=== PATIENT | male | born 1955 | race Caucasian/White ===

== ENCOUNTER 2017-03-13 02:54 | Inpatient (IN) | payer MEDICARE ==
[2017-03-13] MEDS ORDERED: Ondansetron INJ* 2 MG/ML VIAL IV ONE (03:30)
[2017-03-13] MEDS ORDERED: NS 0.9% 1000 ML* 1,000 ML IV ONE ×2 (03:30→06:28)
[2017-03-13] MEDS ORDERED: Morphine INJ* 4 MG/ML 1 ML CARPUJECT IV ONE (03:30)
[2017-03-13 04:46] LABS: Hematocrit 44 % (42-52); Hemoglobin 15.2 g/dl (14.0-18.0); Mean Corpuscular HGB Conc 35 g/dl (31-36); Mean Corpuscular Hemoglobin 31 pg (27-31); Mean Corpuscular Volume 90 fL (80-94); Mean Platelet Volume 7 um3 (7.4-10.4); Red Blood Count 4.85 10^6/ul (4.0-5.4); Red Cell Distribution Width 13 % (10.5-15); White Blood Count 13.1 10^3/ul (3.5-10.8)
[2017-03-13 04:58] LABS: Albumin 4.2 g/dL (3.2-5.2); BUN/Creatinine Ratio 16.4 (8-20); C Reactive Protein 122.14 mg/L (< 5.00); Calcium 9.4 mg/dL (8.6-10.3); EGFR African American 140.9 (>60); EGFR Non-African American 109.6 (>60); Globulin 3.1 g/dL (2-4); Magnesium 1.8 mg/dL (1.9-2.7); Total Bilirubin 0.7 mg/dL (0.2-1.0); Total Protein 7.3 g/dL (6.4-8.9)
[2017-03-13 04:59] LABS: Troponin I 0.02 ng/mL (<0.04)
[2017-03-13] MEDS ORDERED: Iodixanol* (CONTRAST) 320 MG/ML 100 ML SDV IV ONE (05:21)
[2017-03-13] MEDS ORDERED: fentaNYL* 50 MCG/ML 2 ML VIAL (100 MCG VIAL) IV SLOW PU ONE (05:22)
[2017-03-13] MEDS ORDERED: LORazepam INJ* 2 MG/ML 1 ML VIAL ONE (06:33)
[2017-03-13] MEDS ORDERED: LORazepam INJ* 2 MG/ML 1 ML VIAL IV PUSH ONE (06:45)
[2017-03-13] MEDS ORDERED: Albuterol 2.5 MG/3 ML NEB.SOL* (0.083%) INH ONE (06:45)
[2017-03-13 06:55] LABS: FIO2 5
[2017-03-13 07:00] LABS: PCO2 Arterial 46 mmHg (35-45)
--- NOTE | 2017-03-13 07:55 | RAD ---
HISTORY: Seizure COMPARISONS: None TECHNIQUE: Multiple contiguous axial CT scans were obtained of the head without intravenous contrast. Intravenous contrast administered shortly before as part of a CT of the abdomen and pelvis. FINDINGS: The presence of intravenous contrast precludes evaluation for small amounts of subarachnoid hemorrhage. HEMORRHAGE/INFARCT: There is no hemorrhage or acute infarct. MASSES/SHIFT: There is no mass or shift. EXTRA-AXIAL SPACES: There are no extra-axial fluid collections. SULCI AND VENTRICLES: The sulci and ventricles are normal in size and position for the patient's stated age. CEREBRUM: There are no focal parenchymal abnormalities. BRAINSTEM: There are no focal parenchymal abnormalities. CEREBELLUM: There are no focal parenchymal abnormalities. VESSELS: The vessels are grossly normal. PARANASAL SINUSES: The paranasal sinuses are clear. ORBITS: The orbits are unremarkable. BONES AND SOFT TISSUE: No bone or soft tissue abnormalities are noted. OTHER: There is no abnormal enhancement IMPRESSION: NO ACUTE INTRACRANIAL PATHOLOGY.
--- NOTE | 2017-03-13 08:09 | ED ---
Jose Springer Thomas, scribed for Genaro Jennings MD on 03/13/17 at 0758 . Progress - Progress Note Progress Note: The patient is a sign out from Dr. Rivas at shift change pending CT Abd/Pel and CT Brain. CT Abd/Pel shows inflamed appearing gallbladder. Correlation with history, biliary studies, and infectious disease parameters is recommended. ED physician has reviewed this report and agrees. CT Brain shows _ I consulted with Dr. Cowart, surgery, at 07:[address] Cowart has asked me to have medicine see the patient and get preoperative clearance. He is aware of the patient, labs, studies, and that the patient had a seizure immediately after the CT scan. The patient is presently awake, alert, oriented, and has pain mostly in upper half of abdomen. No CP, No SOB, no headache. He will have a chest xray done as well. Since having the seizure is oxygen sat has been a little low, but maintained on oxygen. His lungs are a little rhonci on exam, and it is possible he could have aspirated. The patient has had abdominal pain for two days; he and his drove here yesterday from [facility] for a visit. Case discussed with Dr Sheehan the hospitalists who is doing preoperative consult for general surgery. Course/Dx - Diagnoses Provider Diagnoses: Cholecystitis, Syncope, Seizure The documentation as recorded by the Jose velazquez Thomas accurately reflects the service I personally performed and the decisions made by me, Genaro Jennings MD.
--- NOTE | 2017-03-13 08:17 | RAD ---
HISTORY: Abdominal pain COMPARISONS: CT dated March 13, 2017 VIEWS: Frontal views of the abdomen. FINDINGS: BOWEL: There is a nonobstructive bowel gas pattern. There is a moderate amount of stool within the colon. CALCULI: There are no abnormal calculi. BONES AND SOFT TISSUES: There are no osseous abnormalities. OTHER FINDINGS: The lung bases are clear. There is no subphrenic gas. IMPRESSION: NONOBSTRUCTIVE BOWEL GAS PATTERN.
--- NOTE | 2017-03-13 08:20 | RAD ---
CLINICAL HISTORY: Abdominal pain COMPARISON: None TECHNIQUE: Multiple contiguous axial CT scans were obtained of the abdomen and pelvis after the administration of intravenous contrast. Coronal and sagittal multiplanar reformations are submitted for review. Oral contrast was administered. Delayed images were obtained through the abdomen and pelvis. FINDINGS: LUNG BASES: The lung bases are clear. LIVER: The liver is diffusely low in attenuation compared to the spleen. There are no focal hepatic parenchymal masses. The liver measures up to 20 cm in long axis. BILE DUCTS: There is no intrahepatic or extrahepatic biliary dilatation. GALLBLADDER: Multiple gallstones are noted. There is stranding of the pericholecystic fat. There is mild gallbladder wall thickening. PANCREAS: The pancreas is normal, without mass or ductal dilatation. SPLEEN: Normal in size and appearance. UPPER GI TRACT: Evaluation of the gastrointestinal tract is limited by incomplete gastric distention. The upper GI tract is unremarkable. SMALL BOWEL AND MESENTERY: The small bowel is normal in contour, course, and caliber. There is no obstruction or dilatation. COLON: The colon is normal in contour, course, caliber. There is no pericolonic inflammatory change. ADRENALS: Normal bilaterally. KIDNEYS: The kidneys are normal in shape, size, contour, and axis. There is no hydronephrosis or nephrolithiasis. BLADDER: The bladder is smooth in contour. PELVIC ORGANS: The prostate gland is normal. The seminal vesicles are symmetric. AORTA: There is calcific atherosclerotic disease of the abdominal aorta and its branches, without aneurysmal dilatation IVC: Unremarkable LYMPH NODES: There is no lymphadenopathy by size criteria. ABDOMINAL WALL: There is no evidence for abdominal wall hernia. BONES AND SOFT TISSUES: Mild degenerative changes are noted OTHER: None IMPRESSION: FINDINGS SUGGESTIVE OF ACUTE CHOLECYSTITIS. HEPATOMEGALY WITH FATTY INFILTRATION OF THE LIVER.
--- NOTE | 2017-03-13 08:21 | RAD ---
HISTORY: Hypoxemia COMPARISONS: March 13, 2006 VIEWS: 1: frontal portable view of the chest at 8:03 AM FINDINGS: LINES AND TUBES: None. CARDIOMEDIASTINAL SILHOUETTE: The cardiomediastinal silhouette is normal for portable technique. PLEURA: The costophrenic angles are sharp. No pleural abnormalities are noted. LUNG PARENCHYMA: The lungs are clear. ABDOMEN: The upper abdomen is clear. There is no subphrenic gas. BONES AND SOFT TISSUES: No bone or soft tissue abnormalities are noted. IMPRESSION: NO ACTIVE CARDIOPULMONARY DISEASE.
[2017-03-13] MEDS ORDERED: Zosyn per Pharmacy* NOTE FOLLOW UP SCH (09:00)
[2017-03-13] MEDS ORDERED: NS 0.9% 1000 ML* 1,000 ML IV SCH (09:15)
[2017-03-13] MEDS ORDERED: Piperacillin/Tazobac (*) 3.375 GM ADDV.VIAL ONE (09:33)
[2017-03-13] MEDS ORDERED: traMADol TAB* 50 MG PO PRN (10:30)
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
[2017-03-13] MEDS: Metoprolol Tartrate TAB* 50 mg PO SCH ×2 (11:38→22:37)
--- NOTE | 2017-03-13 12:30 | RAD ---
INDICATION: Right upper quadrant pain. COMPARISON: Comparison is made with a prior CT of the abdomen and pelvis of the same date. TECHNIQUE: Multiple real-time images of the right upper quadrant were obtained. FINDINGS: There are small gallstones present. The gallbladder wall is not thickened although there is pericholecystic fluid present. No intra or extrahepatic ductal distention is present. The common bile duct measured 0.4 cm in diameter. The liver is diffusely increased in echogenicity which correlates with fatty infiltration on the CT study. No focal hepatic abnormality is seen. The pancreas is obscured by overlying bowel gas. The right kidney is normal in size without evidence for hydronephrosis. IMPRESSION: 1. CHOLELITHIASIS. IN ADDITION THERE IS A SMALL AMOUNT OF PERICHOLECYSTIC FLUID SUGGESTING THE POSSIBILITY OF ACUTE CHOLECYSTITIS WHICH WOULD CORRELATE WITH THE PRIOR CT FINDINGS. 2. HEPATIC STEATOSIS.
[2017-03-13 13:13] LABS: Urine Bilirubin Negative (Negative); Urine Glucose 1+(50 mg/dL) (Negative); Urine Nitrite Negative (Negative)
[2017-03-13] MEDS: Gabapentin CAP(*) 300 MG PO SCH ×2 (14:27→22:37)
[2017-03-13] MEDS: Morphine INJ* 2 MG/ML 1 ML SYRINGE (TWO MG - NEW SYRINGE VERSION) IV PRN ×2 (14:55→19:45)
[2017-03-13] MEDS: ZOSYN 3.375 GM Q8H per EXTENDED INFUSION IVPB SCH ×4 (14:55→23:34)
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
[2017-03-13] MEDS ORDERED: Dexamethasone TAB* 4 MG PO ONE (16:22)
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
--- NOTE | 2017-03-13 18:51 | RAD ---
HISTORY: Seizure COMPARISONS: CT of the brain from the same day that does not reveal any acute intracranial abnormality. TECHNIQUE: The following sequences were obtained of the head: Sagittal T1-weighted images, axial T2-weighted images, axial FLAIR images, axial susceptibility weighted images, axial T1-weighted images. Additionally, axial diffusion-weighted images were obtained with calculated apparent diffusion coefficients.. FINDINGS: HEMORRHAGE/INFARCT: There is no hemorrhage or acute infarct. MASSES/SHIFT: There is no mass or shift. EXTRA-AXIAL SPACES/MENINGES: There are no extra-axial fluid collections. SULCI AND VENTRICLES: The sulci and ventricles are normal in size and position for the patient's stated age. CEREBRUM: There are no focal parenchymal abnormalities. BRAINSTEM: There are no focal parenchymal abnormalities. CEREBELLUM: There are no focal parenchymal abnormalities. The cerebellar tonsils are normal in size and position. SELLA: The sella is normal. PINEAL: The pineal region is clear. CP ANGLE/TEMPORAL BONES: The labyrinthine structures are grossly normal. VESSELS: Normal flow-voids are noted within the visualized vertebral vasculature. DIFFUSION ABNORMALITIES: There are no diffusion abnormalities. PARANASAL SINUSES/MASTOIDS: The paranasal sinuses are clear. ORBITS: The orbits are unremarkable. BONES AND SOFT TISSUE: No bone or soft tissue abnormalities are noted. IMPRESSION: NORMAL MRI OF THE BRAIN.
[2017-03-13] MEDS ORDERED: levETIRAcetam TAB* 500 MG PO SCH (21:00)
--- NOTE | 2017-03-13 21:05 | PN ---
Progress Note - Progress Note Date of Service: 03/13/17 Note: Cross cover note: Discussed with Dr. Kaminski. Loaded with keppra 1000mg this evening and again in AM then 1500mg daily starting Monday.
--- NOTE | 2017-03-13 21:38 | CONS ---
CC: Flaco Cowart MD * CARDIOLOGY CONSULTATION NOTE: DATE OF CONSULT: 03/13/17 INDICATION FOR CONSULTATION: Coronary artery disease, acute cholecystitis. HISTORY OF PRESENT ILLNESS: The patient is a 61-year-old gentleman with a history of coronary artery disease, history of stenting to his LAD and left circumflex artery in 2010, who was admitted to the hospital with abdominal pain and diagnosed with acute cholecystitis. The patient states for the past 24 hours, he has had worsening right upper quadrant pain. He has had nausea and vomiting. He has been unable to keep any liquids down. He came to the emergency room. In the emergency room, an abdominal CT were consistent with acute cholecystitis. In speaking with the patient, he denies any recent changes in his cardiac status. The patient denies any chest pain, shortness of breath. No orthopnea or PND. No palpitations. No light-headedness, dizziness, or syncope. The patient was feeling well until the onset of his acute right upper quadrant pain. The patient does report that he continues to smoke up to 10 cigarettes a day. PAST MEDICAL HISTORY: Significant for coronary artery disease, hypercholesterolemia, diabetes. OUTPATIENT MEDICATIONS: 1. Losartan 100 mg a day. 2. Plavix 75 mg a day. 3. Metoprolol tartrate 50 mg b.i.d. 4. Aspirin 325 a day. 5. Coenzyme Q10 100 mg a day. 6. Vitamin C. 7. Gabapentin 300 mg 6 times a day. 8. Tramadol 50 mg 2 tablets 3 times a day. 9. Hydrochlorothiazide 12.5 mg a day. 10. Crestor 20 mg a day. 11. Metformin 1500 mg a day. ALLERGIES: No known drug allergies. SOCIAL HISTORY: He is , he is currently disabled. He continues to smoke 10 cigarettes a day. He denies alcohol use. PHYSICAL EXAM: Height is 6 feet, weight is 236 pounds. Temperature 98.1, heart rate is 105, respiratory rate is 24, oxygen saturation 94% on 2 L, blood pressure 154/93. Sclerae anicteric. Oropharynx is pink without erythema. Carotids are 2+ without bruits. JVD is normal. Thyroid is normal. Cardiac: S1 , S2 without any murmurs, rubs or gallops. PMI is normal. Lungs are clear to auscultation bilaterally. There is no dullness to percussion. Abdomen is obese , soft. He does have right upper quadrant tenderness. There is no evidence of ascites. Extremities show 1+ edema. He has 2+ pulses throughout. The patient is awake and alert and oriented. He moves all 4 extremities equally. DIAGNOSTIC STUDIES/LAB DATA: CBC: White count 13.1, hemoglobin and hematocrit is stable, platelet count 187,000. Chemistries within normal limits. Troponin 0.02. EKG demonstrates normal sinus rhythm with normal axis and intervals. He does have an EKG from earlier today which showed sinus tachycardia. IMPRESSION: This is a 61-year-old gentleman with a history of coronary artery disease as described above who is admitted to the hospital with acute cholecystitis. Again in speaking with the patient, I cannot elicit any recent changes in his symptoms. For now, the patient is on appropriate medications for his cardiac status. At this point, I do not think any medications are necessary. I do not think any cardiac testing is necessary. The patient is at moderately increased risk for cardiovascular complication given his history of coronary artery disease, diabetes and continued smoking. I will continue to follow the patient during his hospitalization. [id number]/[facility] #: [id number] ISAAC
--- NOTE | 2017-03-14 02:13 | EEG ---
ELECTROENCEPHALOGRAPHY: DATE OF STUDY: DATE OF DICTATION: 03/13/17 - ROOM #452 PATIENT OF: Canelo Sheehan MD and Oswaldo Kaminski MD HISTORY: This is a 61-year-old man who presented to the emergency room for abdominal pain and while in the emergency room, he had a generalized convulsion lasting a minute or two. He has never had seizures before. Ativan was given in the emergency room. He has also had pain medications in the emergency room including morphine. REPORT: With the patient awake, background cerebral activity consists of moderate amplitude posterior dominant 9 Hz rhythm, which attenuates with eye opening, reappears with eye closure. At times the patient becomes drowsy with slowing into the theta range, but the patient never falls fully asleep. No epileptiform potentials, focal abnormalities, or major asymmetries of background are noted. CLINICAL IMPRESSION: This awake and drowsy EEG is within normal limits. [id number]/[facility] #: [id number] MTDD
[2017-03-14 04:53] LABS: Hematocrit 42 % (42-52); Hemoglobin 14.2 g/dl (14.0-18.0); Mean Corpuscular HGB Conc 34 g/dl (31-36); Mean Corpuscular Hemoglobin 31 pg (27-31); Mean Corpuscular Volume 91 fL (80-94); Mean Platelet Volume 8 um3 (7.4-10.4); Red Cell Distribution Width 13 % (10.5-15); White Blood Count 18.7 10^3/ul (3.5-10.8)
[2017-03-14] MEDS: ZOSYN 3.375 GM Q8H per EXTENDED INFUSION IVPB SCH ×4 (06:13→15:50)
[2017-03-14] MEDS: Morphine INJ* 2 MG/ML 1 ML SYRINGE (TWO MG - NEW SYRINGE VERSION) IV PRN (06:19)
[2017-03-14] MEDS ORDERED: Famotidine IV* 10 MG/ML 2 ML (20 mg) IV SLOW PU ONE (07:00)
[2017-03-14] MEDS ORDERED: Dexamethasone TAB* 4 MG PO ONE (07:00)
[2017-03-14] MEDS: Metoprolol Tartrate TAB* 50 mg PO SCH (08:40)
[2017-03-14] MEDS: Gabapentin CAP(*) 300 MG PO SCH ×2 (09:08→15:49)
[2017-03-14] MEDS ORDERED: KETAMINE HCL* 50 MG/ML 10 ML VIAL ONE (10:10)
[2017-03-14] MEDS ORDERED: Midazolam* 1 MG/ML 5 ML VIAL (5 MG) ONE (10:10)
[2017-03-14] MEDS ORDERED: Atracurium* 10 MG/ML 10 ML VIAL ONE (10:10)
[2017-03-14] MEDS ORDERED: fentaNYL* 50 MCG/ML 2 ML VIAL (100 MCG VIAL) ONE ×2 (10:10→11:54)
[2017-03-14] MEDS ORDERED: Levalbuterol 1.25MG/0.5ML NEB ONE ×2 (10:36→13:12)
[2017-03-14] MEDS ORDERED: Bupivacaine 0.25% SDV* 30 ML ONE (11:14)
[2017-03-14] MEDS ORDERED: Glycopyrrolate IV* 0.2 MG/ML 1 ML VIAL ONE (12:05)
[2017-03-14] MEDS ORDERED: Metoprolol Tartrate IV* 1 MG/ML 5 ML VIAL ONE (12:05)
[2017-03-14] MEDS ORDERED: Lidocaine 2% PF * 5 ML VIAL ONE ×2 (12:05→12:51)
[2017-03-14] MEDS ORDERED: Ondansetron INJ* 2 MG/ML VIAL ONE (12:05)
[2017-03-14] MEDS ORDERED: Propofol* 10 MG/ML 20 ML BTL IV PUSH ONE (12:05)
[2017-03-14] MEDS ORDERED: Ketorolac INJ* 30 MG/ML 1 ML VIAL ONE (12:05)
[2017-03-14] MEDS ORDERED: Labetalol IV* 5 MG/ML 20 ML VIAL ONE (12:06)
[2017-03-14] MEDS ORDERED: hydrALAZINE IV* 20 MG/ML VIAL ONE (12:10)
[2017-03-14] MEDS ORDERED: Neostigmine Methylsulfate* 2 MG/2 ML SYRINGE ONE (12:28)
--- NOTE | 2017-03-14 12:57 | ED ---
Charisse Springer Alfonso, scribed for Genaro Rivas MD on 03/13/17 at 0332 . Abdominal Pain/Male <Genaro Jennings - Last Filed: 03/13/17 08:08> - HPI Summary HPI Summary: This patient is a 61 year old M presenting to [facility] accompanied by with a chief complaint of diffuse abdominal since 2 days ago. His abdomen is described as gassy and swollen. The patient rates the pain 9/10 in severity. Symptoms alleviated by nothing. Patient denies N/V/D, and constipation. He denies abdominal PSHx. Tobacco abuse disorder. PMHx includes DM, CAD, and HTN. - History of Current Complaint Hx Obtained From: Patient Onset/Duration: Sudden Onset, Lasting Days - 2, Still Present Timing: Constant Severity Currently: Severe Pain Intensity: 9 Pain Scale Used: 0-10 Numeric Location: Diffuse Character: Other: - gassy and swollen. Alleviating Factor(s): Nothing Associated Signs And Symptoms: Positive: Other - denies N/V/D, and constipation <Genaro Rivas - Last Filed: 03/14/17 12:56> - History of Current Complaint Chief Complaint: EDAbdPain Stated Complaint: ABD PAIN/BLOTTING/GASSY Time Seen by Provider: 03/13/17 03:18 - Allergies/Home Medications Allergies/Adverse Reactions: Allergies Allergy/AdvReac Type Severity Reaction Status Date / Time Iodinated Diagnostic Agents Allergy See Comment Verified 03/13/17 16:40 Home Medications: Home Medications Clopidogrel Bisulfate [Clopidogrel] 75 mg PO DAILY 03/13/17 [History Confirmed 03/13/17] Gabapentin CAP(*) [Neurontin 300 CAP(*)] 600 mg PO TID 03/13/17 [History Confirmed 03/13/17] Hydrochlorothiazide [Microzide-] 12.5 mg PO DAILY 03/13/17 [History Confirmed ] Losartan Potassium [Losartan Potassium] 100 mg PO DAILY 03/13/17 [History Confirmed 03/13/17] Metformin HCl [Metformin HCl ER] 500 mg PO DAILY 03/13/17 [History Confirmed 07/29] Metoprolol Tartrate TAB* [Lopressor TAB*] 50 mg PO BID 03/13/17 [History Confirmed 03/13/17] traMADol TAB* [Ultram*] 50 mg PO Q4HR PRN 03/13/17 [History Confirmed 03/13/17] PMH/Surg Hx/FS Hx/Imm Hx Endocrine/Hematology History: Reports: Hx Diabetes Cardiovascular History: Reports: Hx Coronary Artery Disease, Hx Hypertension Opthamlomology History: Denies: Hx Legally Blind EENT History: Denies: Hx Deafness Infectious Disease History: No Infectious Disease History: Denies: Traveled Outside the [place] in Last 30 Days - Family History Known Family History: Positive: Cardiac Disease - Social History Alcohol Use: None Substance Use Type: Reports: None Smoking Status (MU): Light Every Day Tobacco Smoker <Genaro Rivas - Last Filed: 03/14/17 12:56> Review of Systems Negative: Fever Positive: Abdominal Pain, Other - Negative constipation. Negative: Vomiting, Diarrhea, Nausea All Other Systems Reviewed And Are Negative: Yes <Genaro Rivas - Last Filed: 03/14/17 12:56> Physical Exam Vital Signs On Initial Exam: Initial Vitals Temp Pulse Resp BP Pulse Ox 98.0 F 93 18 158/93 96 03/13/17 02:59 03/13/17 02:59 03/13/17 02:59 03/13/17 02:59 03/13/17 02:59 <Genaro Jennings - Last Filed: 03/13/17 08:08> - Summary Physical Exam Summary: VITAL SIGNS: Reviewed. GENERAL: Patient is a well-developed and nourished male who is lying uncomfortably in the stretcher. Patient is not in any acute respiratory distress. HEAD AND FACE: Normocephalic and atraumatic. EYES: PERRLA, EOMI x 2, No injected conjunctiva. EARS: Hearing grossly intact. Ear canals and tympanic membranes are WNL. MOUTH: Oropharynx within normal limits. NECK: Supple, trachea is midline, no adenopathy, no JVD. CHEST: Symmetric, no tenderness at palpation LUNGS: Clear to auscultation bilaterally. No wheezing or crackles. CVS: RRR, S1 and S2 present, no murmurs or gallops appreciated. ABDOMEN: Diffuse abdominal tenderness with guarding and rebound. Soft. No signs of distention. Positive bowel sounds. No masses palpated. No abdominal bruit or pulsations. EXTREMITIES: FROM in all major joints, no edema, no cyanosis or clubbing. NEURO: Alert and oriented x 3. No acute neurological deficits. Speech is normal. SKIN: Dry and warm Triage Information Reviewed: Yes Vital Signs On Initial Exam: Initial Vitals Temp Pulse Resp BP Pulse Ox 98.0 F 93 18 158/93 96 03/13/17 02:59 03/13/17 02:59 03/13/17 02:59 03/13/17 02:59 03/13/17 02:59 Vital Signs Reviewed: Yes - Julio Coma Scale Best Eye Response: 4 - Spontaneous Best Motor Response: 6 - Obeys Commands Best Verbal Response: 5 - Oriented <Genaro Rivas - Last Filed: 03/14/17 12:56> Diagnostics - Vital Signs Vital Signs Temp Pulse Resp BP Pulse Ox 03/13/17 07:37 109 150/95 92 03/13/17 07:32 105 163/95 94 03/13/17 07:15 109 148/97 92 03/13/17 07:05 111 133/80 92 03/13/17 07:00 109 132/81 97 03/13/17 06:55 110 128/80 92 03/13/17 06:50 110 116/72 92 03/13/17 06:48 111 98/65 92 03/13/17 06:47 111 101/68 93 03/13/17 06:46 16 03/13/17 06:42 83 90/58 94 03/13/17 06:33 81/65 03/13/17 06:16 86 97 03/13/17 06:00 73 179/96 95 03/13/17 05:28 16 03/13/17 05:00 73 170/86 96 03/13/17 04:44 175/84 03/13/17 04:42 79 93 03/13/17 04:36 78 159/90 92 03/13/17 04:30 16 03/13/17 04:12 79 96 03/13/17 04:10 84 16 150/90 93 03/13/17 03:40 76 94 03/13/17 03:38 170/92 03/13/17 02:59 98.0 F 93 18 158/93 96 - Laboratory Lab Results: Lab Results 03/13/17 03/13/17 03/13/17 Range/Units 04:20 04:20 04:20 WBC 13.1 H (3.5-10.8) 10^3/ul RBC 4.85 (4.0-5.4) 10^6/ul Hgb 15.2 (14.0-18.0) g/dl Hct 44 (42-52) % MCV 90 (80-94) fL MCH 31 (27-31) pg MCHC 35 (31-36) g/dl RDW 13 (10.5-15) % Plt Count 187 (150-450) 10^3/ul MPV 7 L (7.4-10.4) um3 Neut % (Auto) 82.3 (38-83) % Lymph % (Auto) 10.6 L (25-47) % Flathead % (Auto) 6.5 (1-9) % Eos % (Auto) 0.4 (0-6) % Baso % (Auto) 0.2 (0-2) % Absolute Neuts (auto) 10.8 H (1.5-7.7) 10^3/ul Absolute Lymphs (auto) 1.4 (1.0-4.8) 10^3/ul Absolute Monos (auto) 0.8 (0-0.8) 10^3/ul Absolute Eos (auto) 0 (0-0.6) 10^3/ul Absolute Basos (auto) 0 (0-0.2) 10^3/ul Absolute Nucleated RBC 0.01 10^3/ul Nucleated RBC % 0.1 Patient Temperature ABG pH (7.35-7.45) ABG pH (Temp Correct) ABG pCO2 (35-45) mmHg ABG pCO2 (Temp Corrct ABG pO2 (80-100) mmHg ABG pO2 (Temp Correct ABG HCO3 (19-31) mmol/L ABG O2 Saturation (95-98) % ABG Base Excess (-2.0-2.0) Respiration Rate O2 Delivery Device Ventilator Type Vent Mode FiO2 Inspiratory Time PEEP Pressure Support Pressure Control EPAP IPAP BiPAP Sodium 135 (133-145) mmol/L Potassium 4.0 (3.5-5.0) mmol/L Chloride 97 L (101-111) mmol/L Carbon Dioxide 32 (22-32) mmol/L Anion Gap 6 (2-11) mmol/L BUN 12 (6-24) mg/dL Creatinine 0.73 (0.67-1.17) mg/dL Est GFR ( Amer) 140.9 (>60) Est GFR (Non-Af Amer) 109.6 (>60) BUN/Creatinine Ratio 16.4 (8-20) Glucose 190 H (70-100) mg/dL Lactic Acid (0.5-2.0) mmol/L Calcium 9.4 (8.6-10.3) mg/dL Magnesium 1.8 L (1.9-2.7) mg/dL Total Bilirubin 0.70 (0.2-1.0) mg/dL AST 15 (13-39) U/L ALT 20 (7-52) U/L Alkaline Phosphatase 46 (34-104) U/L Troponin I 0.02 (<0.04) ng/mL C-Reactive Protein 122.14 H (< 5.00) mg/L B-Natriuretic Peptide 63 ( - 100) pg/mL Total Protein 7.3 (6.4-8.9) g/dL Albumin 4.2 (3.2-5.2) g/dL Globulin 3.1 (2-4) g/dL Albumin/Globulin Ratio 1.4 (1-3) Lipase 13 (11.0-82.0) U/L 03/13/17 03/13/17 Range/Units 04:20 06:45 WBC (3.5-10.8) 10^3/ul RBC (4.0-5.4) 10^6/ul Hgb (14.0-18.0) g/dl Hct (42-52) % MCV (80-94) fL MCH (27-31) pg MCHC (31-36) g/dl RDW (10.5-15) % Plt Count (150-450) 10^3/ul MPV (7.4-10.4) um3 Neut % (Auto) (38-83) % Lymph % (Auto) (25-47) % Flat[place] % (Auto) (1-9) % Eos % (Auto) (0-6) % Baso % (Auto) (0-2) % Absolute Neuts (auto) (1.5-7.7) 10^3/ul Absolute Lymphs (auto) (1.0-4.8) 10^3/ul Absolute Monos (auto) (0-0.8) 10^3/ul Absolute Eos (auto) (0-0.6) 10^3/ul Absolute Basos (auto) (0-0.2) 10^3/ul Absolute Nucleated RBC 10^3/ul Nucleated RBC % Patient Temperature Not Reportable ABG pH 7.35 (7.35-7.45) ABG pH (Temp Correct) Not Reportable ABG pCO2 46 H (35-45) mmHg ABG pCO2 (Temp Corrct Not Reportable ABG pO2 63 L (80-100) mmHg ABG pO2 (Temp Correct Not Reportable ABG HCO3 24.1 (19-31) mmol/L ABG O2 Saturation 95.0 (95-98) % ABG Base Excess -0.7 (-2.0-2.0) Respiration Rate Not Reportable O2 Delivery Device nc Ventilator Type Not Reportable Vent Mode Not Reportable FiO2 5 Inspiratory Time Not Reportable PEEP Not Reportable Pressure Support Not Reportable Pressure Control Not Reportable EPAP Not Reportable IPAP Not Reportable BiPAP Not Reportable Sodium (133-145) mmol/L Potassium (3.5-5.0) mmol/L Chloride (101-111) mmol/L Carbon Dioxide (22-32) mmol/L Anion Gap (2-11) mmol/L BUN (6-24) mg/dL Creatinine (0.67-1.17) mg/dL Est GFR ( Amer) (>60) Est GFR (Non-Af Amer) (>60) BUN/Creatinine Ratio (8-20) Glucose (70-100) mg/dL Lactic Acid 2.0 (0.5-2.0) mmol/L Calcium (8.6-10.3) mg/dL Magnesium (1.9-2.7) mg/dL Total Bilirubin (0.2-1.0) mg/dL AST (13-39) U/L ALT (7-52) U/L Alkaline Phosphatase (34-104) U/L Troponin I (<0.04) ng/mL C-Reactive Protein (< 5.00) mg/L B-Natriuretic Peptide ( - 100) pg/mL Total Protein (6.4-8.9) g/dL Albumin (3.2-5.2) g/dL Globulin (2-4) g/dL Albumin/Globulin Ratio (1-3) Lipase (11.0-82.0) U/L Result Diagrams: 03/13/17 04:20 03/13/17 04:20 Lab Statement: Any lab studies that have been ordered have been reviewed, and results considered in the medical decision making process. <Genaro Jennings - Last Filed: 03/13/17 08:08> - Vital Signs Vital Signs Temp Pulse Resp BP Pulse Ox 03/13/17 02:59 98.0 F 93 18 158/93 96 - Laboratory Lab Results: Lab Results 03/13/17 03/13/17 03/13/17 Range/Units 04:20 04:20 04:20 WBC 13.1 H (3.5-10.8) 10^3/ul RBC 4.85 (4.0-5.4) 10^6/ul Hgb 15.2 (14.0-18.0) g/dl Hct 44 (42-52) % MCV 90 (80-94) fL MCH 31 (27-31) pg MCHC 35 (31-36) g/dl RDW 13 (10.5-15) % Plt Count 187 (150-450) 10^3/ul MPV 7 L (7.4-10.4) um3 Neut % (Auto) 82.3 (38-83) % Lymph % (Auto) 10.6 L (25-47) % Flathead % (Auto) 6.5 (1-9) % Eos % (Auto) 0.4 (0-6) % Baso % (Auto) 0.2 (0-2) % Absolute Neuts (auto) 10.8 H (1.5-7.7) 10^3/ul Absolute Lymphs (auto) 1.4 (1.0-4.8) 10^3/ul Absolute Monos (auto) 0.8 (0-0.8) 10^3/ul Absolute Eos (auto) 0 (0-0.6) 10^3/ul Absolute Basos (auto) 0 (0-0.2) 10^3/ul Absolute Nucleated RBC 0.01 10^3/ul Nucleated RBC % 0.1 Patient Temperature ABG pH (7.35-7.45) ABG pH (Temp Correct) ABG pCO2 (35-45) mmHg ABG pCO2 (Temp Corrct ABG pO2 (80-100) mmHg ABG pO2 (Temp Correct ABG HCO3 (19-31) mmol/L ABG O2 Saturation (95-98) % ABG Base Excess (-2.0-2.0) Respiration Rate O2 Delivery Device Ventilator Type Vent Mode FiO2 Inspiratory Time PEEP Pressure Support Pressure Control EPAP IPAP BiPAP Sodium 135 (133-145) mmol/L Potassium 4.0 (3.5-5.0) mmol/L Chloride 97 L (101-111) mmol/L Carbon Dioxide 32 (22-32) mmol/L Anion Gap 6 (2-11) mmol/L BUN 12 (6-24) mg/dL Creatinine 0.73 (0.67-1.17) mg/dL Est GFR ( Amer) 140.9 (>60) Est GFR (Non-Af Amer) 109.6 (>60) BUN/Creatinine Ratio 16.4 (8-20) Glucose 190 H (70-100) mg/dL Lactic Acid (0.5-2.0) mmol/L Calcium 9.4 (8.6-10.3) mg/dL Magnesium 1.8 L (1.9-2.7) mg/dL Total Bilirubin 0.70 (0.2-1.0) mg/dL AST 15 (13-39) U/L ALT 20 (7-52) U/L Alkaline Phosphatase 46 (34-104) U/L Troponin I 0.02 (<0.04) ng/mL C-Reactive Protein 122.14 H (< 5.00) mg/L B-Natriuretic Peptide 63 ( - 100) pg/mL Total Protein 7.3 (6.4-8.9) g/dL Albumin 4.2 (3.2-5.2) g/dL Globulin 3.1 (2-4) g/dL Albumin/Globulin Ratio 1.4 (1-3) Lipase 13 (11.0-82.0) U/L 03/13/17 03/13/17 Range/Units 04:20 06:45 WBC (3.5-10.8) 10^3/ul RBC (4.0-5.4) 10^6/ul Hgb (14.0-18.0) g/dl Hct (42-52) % MCV (80-94) fL MCH (27-31) pg MCHC (31-36) g/dl RDW (10.5-15) % Plt Count (150-450) 10^3/ul MPV (7.4-10.4) um3 Neut % (Auto) (38-83) % Lymph % (Auto) (25-47) % [place] % (Auto) (1-9) % Eos % (Auto) (0-6) % Baso % (Auto) (0-2) % Absolute Neuts (auto) (1.5-7.7) 10^3/ul Absolute Lymphs (auto) (1.0-4.8) 10^3/ul Absolute Monos (auto) (0-0.8) 10^3/ul Absolute Eos (auto) (0-0.6) 10^3/ul Absolute Basos (auto) (0-0.2) 10^3/ul Absolute Nucleated RBC 10^3/ul Nucleated RBC % Patient Temperature Not Reportable ABG pH 7.35 (7.35-7.45) ABG pH (Temp Correct) Not Reportable ABG pCO2 46 H (35-45) mmHg ABG pCO2 (Temp Corrct Not Reportable ABG pO2 63 L (80-100) mmHg ABG pO2 (Temp Correct Not Reportable ABG HCO3 24.1 (19-31) mmol/L ABG O2 Saturation 95.0 (95-98) % ABG Base Excess -0.7 (-2.0-2.0) Respiration Rate Not Reportable O2 Delivery Device nc Ventilator Type Not Reportable Vent Mode Not Reportable FiO2 5 Inspiratory Time Not Reportable PEEP Not Reportable Pressure Support Not Reportable Pressure Control Not Reportable EPAP Not Reportable IPAP Not Reportable BiPAP Not Reportable Sodium (133-145) mmol/L Potassium (3.5-5.0) mmol/L Chloride (101-111) mmol/L Carbon Dioxide (22-32) mmol/L Anion Gap (2-11) mmol/L BUN (6-24) mg/dL Creatinine (0.67-1.17) mg/dL Est GFR ( Amer) (>60) Est GFR (Non-Af Amer) (>60) BUN/Creatinine Ratio (8-20) Glucose (70-100) mg/dL Lactic Acid 2.0 (0.5-2.0) mmol/L Calcium (8.6-10.3) mg/dL Magnesium (1.9-2.7) mg/dL Total Bilirubin (0.2-1.0) mg/dL AST (13-39) U/L ALT (7-52) U/L Alkaline Phosphatase (34-104) U/L Troponin I (<0.04) ng/mL C-Reactive Protein (< 5.00) mg/L B-Natriuretic Peptide ( - 100) pg/mL Total Protein (6.4-8.9) g/dL Albumin (3.2-5.2) g/dL Globulin (2-4) g/dL Albumin/Globulin Ratio (1-3) Lipase (11.0-82.0) U/L Result Diagrams: 03/14/17 04:16 03/13/17 04:20 Lab Statement: Any lab studies that have been ordered have been reviewed, and results considered in the medical decision making process. - Radiology Abdomen X-Ray Radiology Interpretation Completed By: Radiologist - Pending official interpretation from radiologist. See [facility]. - CT A/P CT Interpretation Completed By: Radiologist - Pending official interpretation from radiologist. See [facility]. Brain CT Interpretation Completed By: Radiologist - Pending official interpretation from radiologist. See [facility]. - EKG 0407 Cardiac Rate: NL - BPM 77 EKG Rhythm: Sinus Rhythm EKG Interpretation: No ST elevation. Normal axis. 0633 Cardiac Rate: Tachycardia - BPM 112 EKG Rhythm: Sinus Tachycardia EKG Interpretation: Post seizure. EKG Comparison: No Significant Change - 0407 <Genaro Rivas - Last Filed: 03/14/17 12:56> Re-Evaluation - Re-Evaluation First Eval Re-Evaluation Time: 06:35 Comment: At approximately 0635 when the patient came back from CT, I was called into the room by the RN who stated that the patient became unresponsive. As soon as I arrived to the patient he had seizure activity with foaming at the mouth, body stiffness, and making loud noises. The patient was given pressured fluids and 2 mg of Ativan. He is resting comfortably with stable vital signs. <Genaro Rivas - Last Filed: 03/14/17 12:56> Abdominal Pain Fem Course/Dx <Genaro Jennings - Last Filed: 03/13/17 08:08> - Course Assessment/Plan: This patient is a 61 year old M presenting to [facility] accompanied by with a chief complaint of diffuse abdominal since 2 days ago. His abdomen is described as gassy and swollen. The patient rates the pain 9/10 in severity. Symptoms alleviated by nothing. Patient denies N/V/D, and constipation. He denies abdominal PSHx. Tobacco abuse disorder. PMHx includes DM, CAD, and HTN. An EKG reveals NSR. Test results with no significant abnormalities except for WBC of 13.1, glucose of 190, and CRP of 122.1. Abdominal xray was read as normal bowel gas pattern. Therfore I ordered an abominal and pelvic CT to r/o Pancreatitis, Cholecystitis, diverticulitis or any intrabominal pathology. In the ED course the patient was given IV fluids, morphine, and fentanyl for the pain. At this time the patient is awaiting the CT A/P. Therefore, the patient will be signed out at shift change to Dr. Jennings for further work up and management. At this time the patient is hemodynamically stable and alert and oriented x3. At approximately 0635 when the patient came back from CT, I was called into the room by the RN who stated that the patient became unresponsive. As soon as I arrived to the patient he had seizure activity with stiffness, foaming at the mouth, body stiffness, and making loud noises. The patient was given pressured fluids and 2 mg of Ativan. He is resting comfortably with stable vital signs. I ordered a CT head and ABG to rule out any acute intracranial pathology since the patient does not have a history of seizures. At this time patient is stable and alert and oriented x 3. He is hemodynamically stable. He will be signed to Dr. Jennings at change of shift. - Diagnoses Differential Diagnosis/HQI/PQRI: Bowel Obstruction, Constipation, Diverticulitis , Gall Bladder Disease, Pancreatitis, Peptic Ulcer Disease, Urinary Tract Infection <Genaro Rivas - Last Filed: 03/14/17 12:56> - Diagnoses Provider Diagnoses: Cholecystitis, Syncope, Seizure Discharge <Genaro Jennings - Last Filed: 03/13/17 08:08> - Discharge Plan Discharge Disposition Comment: Patient is signed out to Dr. Jennings, pending disposition, awaiting CT A/P <Genaro Rivas - Last Filed: 03/14/17 12:56> - Discharge Plan Condition: Fair Disposition: ADMITTED TO [facility] documentation as recorded by the Charisse velazquez Alfonso accurately reflects the service I personally performed and the decisions made by Rob taylor Walter, MD.
[2017-03-14] MEDS ORDERED: PROCHLORPERAZINE INJ 5 MG/ML 2 ML VIAL IV PRN (13:08)
[2017-03-14] MEDS ORDERED: oxyCODONE/Acetamin 5/325 MG* TAB PO PRN ×3 (13:08→13:33)
[2017-03-14] MEDS ORDERED: Morphine INJ* 2 MG/ML 1 ML CARPUJECT IV PRN (13:08)
[2017-03-14] MEDS ORDERED: fentaNYL* 50 MCG/ML 2 ML VIAL (100 MCG VIAL) IV PRN (13:08)
--- NOTE | 2017-03-14 13:25 | PN ---
Progress Note - Progress Note Date of Service: 03/14/17 Note: Brief Operative Note: Preop Dx: acute cholecystitis Postop Dx: same, gangrenous Procedure: laparoscopic cholecystectomy Anesthesia: GET Surgeon: Ella Asst: KAYLAN Perez EBL: < 100 ml Fluids: 900 ml RL Specimen: GB Drains: none Findings: Dictated
[2017-03-14] MEDS ORDERED: Morphine INJ* 4 MG/ML 1 ML CARPUJECT IV PRN (13:27)
[2017-03-14] MEDS ORDERED: Acetaminophen TAB* 325 MG PO PRN (13:27)
[2017-03-14] MEDS ORDERED: Morphine INJ* 2 MG/ML 1 ML SYRINGE (TWO MG - NEW SYRINGE VERSION) IV PRN (13:37)
[2017-03-14] MEDS ORDERED: NS 0.9% 1000 ML* 1,000 ML IV SCH (13:45)
[2017-03-14 15:55] VITALS: BP 116/66
--- NOTE | 2017-03-15 02:27 | OP ---
CC: Dr. Maurizio Grover; Dr. Sheila Khan * DATE OF OPERATION: 03/14/17 - ROOM #452 DATE OF : 57 SURGEON: Saurabh Jaramillo MD MANAGER TRANSIT: KAYLAN Guevara ANESTHESIOLOGIST: Dr. Knapp. ANESTHESIA: General anesthesia. PRE-OP DIAGNOSIS: Acute cholecystitis. POST-OP DIAGNOSIS: Acute gangrenous cholecystitis. OPERATIVE PROCEDURE: Laparoscopic cholecystectomy. BLOOD LOSS: Less than 100 cc. FLUIDS: 900 cc of lactated Ringer's. SPECIMEN: Gallbladder. DRAINS: None. INDICATIONS: I met Mr. New in the preoperative area. I discussed the case with my partner and reviewed his chart in its entirety including radiology studies. The patient additionally was examined and I agreed with the diagnosis of acute cholecystitis. I outlined the details of her laparoscopic cholecystectomy going over the risks, benefits, and alternatives to both him and his . We spoke of the possible complications, which included but not limited to bleeding, infection, bile leak, common bile duct injury, retained common bile duct stones, need for open procedure, need for additional procedures , possibility of a partial cholecystectomy. The patient's questions were answered and he signed consent. DESCRIPTION OF PROCEDURE: He was taken to the operating room and placed on the operating table in a supine position. Preoperative antibiotics were given. Sequential devices were placed on bilateral lower extremities. General anesthesia was induced. The patient's abdomen was prepped and draped in standard surgical fashion and a time-out was performed. Folds of the umbilicus were elevated anteriorly and a Veress needle was inserted into the abdominal cavity, which was then allowed to insufflate to a pressure of 15 mmHg. The patient tolerated the insufflation well. Venus between the xiphoid and the umbilicus just to right of midline, a 12-mm trocar was inserted. Laparoscope was inserted through this and we identified omental draped over the gallbladder. The Veress needle was removed and additional trocars were then placed in the following position: 12 mm in the subxiphoid area and two 5 mm along the right costal margin. Table was repositioned. The omentum was bluntly dissected off the gallbladder, which showed signs of patchy gangrene. We decompressed the gallbladder to allow us to lift it up. We pulled out approximately 20 cc of thick bile. We grasped the gallbladder at the fundus and retracted above the liver. The infundibular portion of the gallbladder was identified and a rind of peritoneum was taken down with electrocautery. This allowed us to see the gangrenous gallbladder within, which was grasped and retracted towards the right lower quadrant. We could not fully appreciate Calot's triangle and so dissection was carried up on the medial aspect of the gallbladder. We doubly clipped a cystic artery. The lateral aspect of this was similarly taken and once we could get behind the entire gallbladder, we could see that there was only one structure going to this as determined to be the cystic duct. This was doubly clipped and ligated and the gallbladder was removed from the liver bed and placed in endoscopic retrieval bag and brought out through the subxiphoid port. We had leaked significant amount of bile during the procedure. This was suctioned off and then we irrigated until the effluent was clear. Review of the cystic duct stump, cystic artery stump showed the clips were in place with no bile and no bleeding. Table was repositioned back to neutral. Camera was repositioned to the subxiphoid area and the periumbilical incision was reapproximated at the fascial layer with a 0 Polysorb suture using an Endo Close device. Abdomen was allowed to collapse. Trocars were removed and all 4 skin incisions were reapproximated with 4-0 Monocryl subcuticular sutures followed by Steri-Strips and sterile dressing. The patient tolerated the procedure well, was extubated and transferred to PACU in stable condition. [id number] #: [id number] ISAAC
[2017-03-15] MEDS ORDERED: Clopidogrel TAB* 75 MG PO SCH (09:00)
--- NOTE | 2017-03-15 11:15 | DS ---
CC: Dr. Kaminski; Dr. Jaramillo; Dr. Sheila Khan DISCHARGE SUMMARY: DATE OF ADMISSION: 03/13/17 DATE OF DISCHARGE: 03/14/17 ADMITTING PHYSICIAN: Dr. Canelo Sheehan. DISCHARGE PHYSICIAN: Yi Candelaria DO PRIMARY CARE PHYSICIAN: Dr. Sheila Khan, [place]. PRIMARY WAITER/WAITRESS THIRD CLASS: Dr. Grover. PRINCIPAL DIAGNOSIS: Acute gangrenous cholecystitis. SECONDARY DIAGNOSES: 1. Coronary artery disease. 2. Grand mal seizure, provoked. 3. Tobacco abuse. PHYSICAL EXAMINATION: On 03/14/17, temperature 98.4 degrees, heart rate 96, respiratory rate 18, pu lse ox 94% on room air, blood pressure 135/71. General: Alert, well-appearing, sitting up in bed po stoperatively. HEENT: Facial plethora. Pupils equal, round, and reactive to light. Moist mucosa. Neck: No JVP. No cervical adenopathy. Chest: Regular rate and rhythm. No murmurs. Lungs: Wilfredo ar bilaterally. Abdomen: Three laparoscopy incisions dressed without drainage. Abdomen: Soft, non distended. Mildly tender to gentle palpation diffusely. Extremities: No ecchymosis, no edema. Str ength 5+ throughout. Neurologic: Alert, pleasant, oriented x3. PERTINENT LABORATORY RESULTS: Blood cultures negative x4. IMAGING: This admission, gallbladder ultrasound on 03/13/17 showed cholelithiasis with a small amou nt of pericholecystic fluid, suggesting the possibility of acute cholecystitis and hepatic steatosis . A brain MRI on 03/13/17 showed a normal MRI of the brain. An abdomen and pelvis CT on 03/13/17 showed findings suggestive of acute cholecystitis, hepatomegaly with fatty infiltration of the liver. REVIEW OF SYSTEMS ON THE DAY OF DISCHARGE: Negative for fevers, chills, nausea, vomiting, abdominal pain. The remaining 14-point review of systems were negative. HOSPITAL COURSE BY PROBLEM: 1. Acute gangrenous cholecystitis. He went to the operating room with General Surgery on 03/14/17 and had a successful laparoscopic cholecystectomy. It was found to be gangrenous on removal. At th e time of discharge, a pathology report is pending. He will be continued on Augmentin for [address] discharge. He is also discharged with p.r.n. Percocet and he will follow up with General Surger y. 2. Grand mal seizure. He was noted to have a seizure for the first time in his life in the emergen cy department after his CT with contrast. He was evaluated by Dr. Kaminski in Neurology, who believe d this seizure to be provoked either from IV contrast, a precipitous drop in his blood pressure, or sepsis/infection/pain from the acute cholecystitis. He was loaded with Keppra perioperatively and w as given antiepileptics in the perioperative period only; however, upon discharge, the case was disc ussed with Dr. Kaminski who did not believe Mr. New to require anticonvulsants long-term since th is was thought to be a provoked seizure and he had a normal MRI. Mr. New is instructed strictly not to drive until he follows up with Dr. Kaminski and is cleared from a Neurology standpoint. He a nd his expressed understanding and agreement to this plan. 3. Coronary artery disease. He had no evidence of ischemia. He was evaluated by Dr. Reilly candelaria ratively, who did not recommend any further cardiac testing preop. He had no perioperative chest obi n. 4. Disposition. The patient was discharged to home on 03/14/17 with his . He will follow up w ith General Surgery, Neurology, and his primary care physician. TIME SPENT: Greater than 60 minutes were spent on this hospital discharge, greater than half of lexis t time was spent with the patient and his . [id number]/[facility] #: [id number]
== END 2017-03-14 17:19 | DRG 419 ==
LOC: ED 02:54 → MEDTELE 08:46
PROVIDERS: ADMIT Internal Medicine; ATTEND Internal Medicine
PROC: 0FT44ZZ Resection of Gallbladder, Percutaneous Endoscopic Approach (ICD-10-PCS; principal; 2017-03-13)
DX: K80.00 Calculus of gallbladder with acute cholecystitis without obstruction (principal); R56.9 Unspecified convulsions; K76.0 Fatty (change of) liver, not elsewhere classified; I25.10 Atherosclerotic heart disease of native coronary artery without angina pectoris; E78.00 Pure hypercholesterolemia, unspecified; F17.210 Nicotine dependence, cigarettes, uncomplicated; E11.9 Type 2 diabetes mellitus without complications; Z95.5 Presence of coronary angioplasty implant and graft; Z79.84 Long term (current) use of oral hypoglycemic drugs; Z79.01 Long term (current) use of anticoagulants; Z79.1 Long term (current) use of non-steroidal anti-inflammatories (NSAID); Z79.899 Other long term (current) drug therapy; Z79.82 Long term (current) use of aspirin
CPT/HCPCS: 36415; 36600; 70450; 70551; 71010; 74000; 74177; 76705; 80053; 81003; 82803; 83605; 83690; 83735; 83880; 84484; 85025; 86140; 87040; 88304; 93005; 94640; 95816; A9270-GY; J0360; J1885; J2060; J2250; J2270; J2405; J2543; J2704; J3010; J8540; Q9967

== ENCOUNTER 2024-07-03 09:53 | Observation (INO) ==
[2024-07-03 11:06] LABS: ABS Lymphocytes 0.7 10^3/uL (1.0-4.8); ABS Monocytes 0.9 10^3/uL (0.0-1.1); ABS Neutrophils 4.3 10^3/uL (1.5-7.6); ABS Nucleated RBC 0.01 10^3/ul; Eosinophil % 0.1 %; Hematocrit 44.4 % (38-53); Hemoglobin 15.9 g/dL (13.2-16.3); Lymphocyte % 11.1 %; Mean Corpuscular Hemoglobin 32.6 pg (27-33); Mean Corpuscular Hgb Conc 35.8 g/dL (31-36); Mean Platelet Volume 7.2 fL (7.5-11.2); Nucleated Red Blood Cells % 0.2 %/100WBC (0.0-0.8); Platelet Count 121 10^3/uL (150-450); Red Blood Count 4.87 10^6/uL (4.06-5.63); Red Cell Distribution Width 13.4 % (12-17)
[2024-07-03 11:16] LABS: INR 1.07 (0.85-1.14)
[2024-07-03 11:22] LABS: Albumin 4.1 g/dL (3.5-5.7); Albumin/Globulin Ratio 1.5 (1-3); Calcium 8.8 mg/dL (8.6-10.3); Creatinine, Serum 1.04 mg/dL (0.67-1.17); Globulin 2.7 g/dL (2-4); Potassium 4.3 mmol/L (3.5-5.0); Total Bilirubin 0.6 mg/dL (0.2-1.0); Total Protein 6.8 g/dL (6.4-8.9); eGFR CKD-EPI 78.7 (>60)
[2024-07-03] MEDS: Lactated Ringers 1000 ml BAG 1,000 ML IV ONE (11:54)
[2024-07-03 12:32] LABS: High Sensitivity Troponin 1 Hr 14 pg/mL (<20)
[2024-07-03 13:06] LABS: Magnesium 2.2 mg/dL (1.9-2.7)
[2024-07-03 13:15] LABS: TSH Ultra Thyroid Stim Horm 1.56 mcIU/mL (0.34-5.60)
[2024-07-03] MEDS: Enoxaparin 40 MG/0.4 ML SYR SUBCUT SCH (14:39)
[2024-07-03] MEDS ORDERED: Albuterol HFA INHALER 8 gm MDI INH PRN (14:39)
[2024-07-03] MEDS ORDERED: Sulfur Hexaflouride MICROSPHR 25 MG VIAL ONE (16:08)
[2024-07-03] MEDS: Sulfur Hexaflouride MICROSPHR 25 MG VIAL IV PRN (16:24)
[2024-07-03 20:09] LABS: Urine Appearance Clear; Urine Bilirubin Negative (Negative); Urine Blood Negative (Negative); Urine Color Yellow; Urine Glucose 4+ (>=1000 mg/dL) (Negative); Urine Ketones Trace (Negative); Urine Nitrite Negative (Negative); Urine Protein Trace (Negative); Urine Urobilinogen 2+ (Negative)
[2024-07-03] MEDS: Empagliflozin 25 MG TAB PO SCH (21:59)
[2024-07-03] MEDS: Coenzyme Q10 CAP (NF) 100MG PO SCH (22:00)
[2024-07-04] MEDS: Mometasone/Formoter 200/5 MDI INH SCH (01:46)
[2024-07-04 05:59] LABS: ABS Lymphocytes 0.8 10^3/uL (1.0-4.8); ABS Monocytes 0.6 10^3/uL (0.0-1.1); ABS Neutrophils 2.2 10^3/uL (1.5-7.6); ABS Nucleated RBC 0.01 10^3/ul; Eosinophil % 0.4 %; Lymphocyte % 21.9 %; Mean Corpuscular Volume 91.5 fL (80-97); Mean Platelet Volume 7.6 fL (7.5-11.2); Nucleated Red Blood Cells % 0.1 %/100WBC (0.0-0.8); Platelet Count 104 10^3/uL (150-450); Red Cell Distribution Width 13.3 % (12-17); White Blood Count 3.7 10^3/uL (3.6-10.2)
[2024-07-04 06:28] LABS: Calcium 8.2 mg/dL (8.6-10.3); Creatinine, Serum 0.86 mg/dL (0.67-1.17); Magnesium 1.9 mg/dL (1.9-2.7); Potassium 3.9 mmol/L (3.5-5.0); eGFR CKD-EPI 94.9 (>60)
[2024-07-04] MEDS: Cholecalciferol (VIT D3) 1,000 unit TAB PO SCH (08:19)
[2024-07-04 09:55] VITALS: BP 91/64
[2024-07-05 23:35] LABS: Anaplasma phagocytophilum Negative (Negative); B. miyamotoi PCR, B Negative (Negative); Babesia divergens/MO-1 Negative (Negative); Babesia ducani Negative (Negative); Ehrlichia chaffeensis Negative (Negative); Ehrlichia ewingii/canis Negative (Negative); Ehrlichia muris eauclairensis Negative (Negative)
== END 2024-07-04 10:15 | disposition home or self-care (01) ==
LOC: ED 09:53 → EDHOLD 09:53 → MEDTELE 16:47
PROVIDERS: ADMIT Student in an Organized Health Care Education/Training Program; ATTEND Student in an Organized Health Care Education/Training Program